=== PATIENT | male | born 1955 | race Caucasian/White ===

== ENCOUNTER 2024-01-04 08:42 | Emergency (ER) | payer OTHER ==
[~2024-01-04] VITALS: Ht 170.2 cm; Wt 59.0 kg
[2024-01-04 08:52] VITALS: BP 145/84; PULSE 112; RESP 20; TEMP 98; O2SAT 98
[2024-01-04] MEDS ORDERED: GABA300C PO (09:00)
[2024-01-04] MEDS ORDERED: SIMV-373 PO (09:03)
[2024-01-04] MEDS ORDERED: ATA25 PO (09:03)
[2024-01-04] MEDS ORDERED: TAMS0.4C96 PO (09:03)
[2024-01-04 09:22] VITALS: BP 145/84; PULSE 112; RESP 20; TEMP 98; O2SAT 98
[2024-01-04] MEDS: LORazepam 1 MG TAB PO ONE (09:50)
[2024-01-04] MEDS: LIDOCAINE 5% 1 EA PATCH TP ONE (09:50)
== END 2024-01-04 09:30 | disposition left against medical advice (07) ==
LOC: MED 08:42
DX: S22.42XA Multiple fractures of ribs, left side, initial encounter for closed fracture (principal); E78.5 Hyperlipidemia, unspecified; F41.9 Anxiety disorder, unspecified; F17.200 Nicotine dependence, unspecified, uncomplicated; Z71.6 Tobacco abuse counseling; Z79.899 Other long term (current) drug therapy; Y04.2XXA Assault by strike against or bumped into by another person, initial encounter; Y93.89 Activity, other specified; Y92.89 Other specified places as the place of occurrence of the external cause; Y99.8 Other external cause status
CPT/HCPCS: 71101; 93005; 99283